=== PATIENT | female | born 1960 | race Caucasian/White ===

== ENCOUNTER 2017-12-11 18:26 | Emergency (ER) | payer OTHER ==
[2017-12-11] MEDS ORDERED: Ondansetron 4 MG/2 ML SDV IVPUSH ONE (19:17)
[2017-12-11] MEDS ORDERED: Sodium Chloride 0.9% 10 ML Syringe FLUSH PRN (19:17)
[2017-12-11] MEDS ORDERED: Sodium Chloride 0.9% 500 ML IV ONE (19:17)
--- NOTE | 2017-12-11 19:57 | EDM.PDOC ---
ED HPI GENERAL MEDICAL PROBLEM - General Chief Complaint: Gastrointestinal Problem Stated Complaint: nausea Time Seen by Provider: 12/11/17 18:56 Source of Information: Reports: RN Notes Reviewed - History of Present Illness INITIAL COMMENTS - FREE TEXT/NARRATIVE: 57 year old female with nausea, quite severe the past 4 days. No vomiting or diarrhea. Has had quite frequent cough worse a few days ago, mostly nonoprod. No abd pain at this time. Has been drinking and eating although appetite quite diminished. No chest pain or difficulty breathing. Worried about high potassium , states that made her ill once before in a similar way. 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 (see below) Other Treatments LOKIE DRIVER: none - Related Data Allergies Allergy/AdvReac Type Severity Reaction Status Date / Time amlodipine [From Norvasc] Allergy Rash Verified 01/05/17 08:20 amoxicillin Allergy Rash Verified 01/05/17 07:59 plant stanol salas Allergy Redness Verified 01/05/17 08:20 [From Benecol] Sulfa (Sulfonamide Allergy Rash Verified 01/05/17 07:59 Antibiotics) lisinopril AdvReac Cough Verified 02/15/17 11:31 Home Meds: Home Meds Aspirin [Halfprin] 81 mg PO DAILY 12/11/17 [History] L.acidoph,Paracasei, B.lactis [Probiotic] 1 cap PO DAILY 12/11/17 [History] Ondansetron [Zofran ODT] 4 mg PO Q8HR PRN #10 tab.dis 12/11/17 [Rx] Past Medical History Cardiovascular History: Reports: Other (See Below) Other Cardiovascular History: heart abblation for SVT and for atrail flutter - Past Surgical History GI Surgical History: Reports: Appendectomy, Cholecystectomy Musculoskeletal Surgical History: Reports: Other (See Below) Other Musculoskeletal Surgeries/Procedures:: low back surgery Social & Family History - Tobacco Use Smoking Status *Q: Never Smoker - Caffeine Use Caffeine Use: Reports: Tea - Recreational Drug Use Recreational Drug Use: No ED ROS GENERAL - Review of Systems Review Of Systems: See Below Constitutional: Denies: Fever, Chills, Diaphoresis HEENT: Denies: Sinus Problem, Throat Pain Respiratory: Reports: Cough. Denies: Shortness of Breath, Sputum Cardiovascular: Denies: Chest Pain GI/Abdominal: Reports: Decreased Appetite, Nausea. Denies: Abdominal Pain, Vomiting Musculoskeletal: Reports: No Symptoms Skin: Reports: No Symptoms Neurological: Reports: No Symptoms ED EXAM - Physical Exam Exam: See Below General Appearance: Alert, No Apparent Distress Eye Exam: Bilateral Eye: PERRL Throat/Mouth: Normal Inspection, Normal Oropharynx Head: Atraumatic Neck: Supple, Full Range of Motion Respiratory/Chest: No Respiratory Distress, Lungs Clear, Normal Breath Sounds Cardiovascular: Regular Rate, Rhythm GI/Abdominal Exam: Soft, Non-Tender. No: Guarding, Rebound Extremities: Normal Inspection, Normal Range of Motion Neurological: Alert, Oriented, No Motor/Sensory Deficits Skin Exam: Warm, Dry, Normal Color Course - Vital Signs Last Recorded V/S: Last Vital Signs Temp 98.7 F 12/11/17 18:34 Pulse 80 12/11/17 18:34 Resp 20 12/11/17 18:34 BP 162/97 H 12/11/17 18:41 Pulse Ox 100 12/11/17 18:34 - Orders/Labs/Meds Orders: Active Orders 24 hr Category Date Time Status Peripheral IV Care [RC] . DIRECTED Care 12/11/17 19:17 Active Sodium Chloride 0.9% [Saline Flush] Med 12/11/17 19:17 Active 10 ml FLUSH ASDIRECTED PRN Peripheral IV Insertion Adult [OM.PC] Stat Oth 12/11/17 19:17 Ordered Medication Orders Sodium Chloride (Saline Flush) 10 ml FLUSH ASDIRECTED PRN PRN Reason: Keep Vein Open Last Admin: 12/11/17 19:32 Dose: 10 ml Labs: Laboratory Tests 12/11/17 Range/Units 19:23 Sodium 139 (136-145) mEq/L Potassium 3.6 (3.5-5.1) mEq/L Chloride 104 (98-107) mEq/L Carbon Dioxide 25 (21-32) mEq/L Anion Gap 13.6 (5-15) BUN 16 (7-18) mg/dL Creatinine 0.8 (0.55-1.02) mg/dL Est Cr Clr Drug Dosing 62.63 mL/min Estimated GFR (MDRD) > 60 (>60) mL/min BUN/Creatinine Ratio 20.0 H (14-18) Glucose 103 (74-106) mg/dL Calcium 9.5 (8.5-10.1) mg/dL Total Bilirubin 0.3 (0.2-1.0) mg/dL AST 17 (15-37) U/L ALT 26 (14-59) U/L Alkaline Phosphatase 61 (46-116) U/L Total Protein 7.8 (6.4-8.2) g/dl Albumin 4.1 (3.4-5.0) g/dl Globulin 3.7 gm/dL Albumin/Globulin Ratio 1.1 (1-2) Meds: Medications Generic Name Dose Route Start Last Admin Trade Name Freq PRN Reason Stop Dose Admin Sodium Chloride 10 ml 12/11/17 19:17 12/11/17 19:32 Saline Flush FLUSH 10 ml ASDIRECTED PRN Administration Keep Vein Open Discontinued Medications Generic Name Dose Route Start Last Admin Trade Name Freq PRN Reason Stop Dose Admin Sodium Chloride 500 mls @ 999 mls/hr 12/11/17 19:17 12/11/17 19:31 Normal Saline IV 12/11/17 19:47 999 mls/hr .BOLUS ONE Administration Ondansetron HCl 4 mg 12/11/17 19:17 12/11/17 19:31 Zofran IVPUSH 12/11/17 19:18 4 mg ONETIME ONE Administration - Re-Assessments/Exams Free Text/Narrative Re-Assessment/Exam: 12/11/17 20:43 K+ 3.6, feeling better after IV fluid and zofran. Departure - Departure Time of Disposition: 20:29 Disposition: Home, Self-Care 01 Condition: Fair Clinical Impression: Nausea - Discharge Information Prescriptions: Ondansetron [Zofran ODT] 4 mg PO Q8HR PRN #10 tab.dis PRN Reason: Nausea/Vomiting Instructions: Nausea, Adult, [id number] Referrals: Clari Rae, [facility] SALESMAN [Primary Care Provider] - Forms: ED Department Discharge Additional Instructions: clear liquids and bland diet as tolerated, zofran q 8-12 hr if needed for severe nausea, pepcid or prilosec as needed, follow up clinic if not much better within 2-3 days as expected. - My Orders Last 24 Hours: My Active Orders 12/11/17 19:17 Peripheral IV Care [RC] . DIRECTED Sodium Chloride 0.9% [Saline Flush] 10 ml FLUSH ASDIRECTED PRN Peripheral IV Insertion Adult [OM.PC] Stat - Assessment/Plan Last 24 Hours: My Active Orders 12/11/17 19:17 Peripheral IV Care [RC] . DIRECTED Sodium Chloride 0.9% [Saline Flush] 10 ml FLUSH ASDIRECTED PRN Peripheral IV Insertion Adult [OM.PC] Stat
== END 2017-12-11 20:46 | disposition home or self-care (01) ==
LOC: JD.ED 18:26
DX: R11.0 Nausea (principal); Z88.2 Allergy status to sulfonamides; Z88.8 Allergy status to other drugs, medicaments and biological substances; Z79.82 Long term (current) use of aspirin; Z79.899 Other long term (current) drug therapy; Z90.49 Acquired absence of other specified parts of digestive tract
CPT/HCPCS: 36415; 80053; 96361; 96374; 99284; J2405; J7040; J7050

== ENCOUNTER 2018-04-15 10:47 | Emergency (ER) | payer OTHER ==
[2018-04-15] MEDS ORDERED: Sodium Chloride 0.9% 1,000 ML IV ONE (11:14)
[2018-04-15] MEDS ORDERED: Diltiazem 50 MG/10 ML SDV IVPUSH ONE (11:22)
[2018-04-15] MEDS ORDERED: Diltiazem 125 MG in Sodium Chloride 0.9% 100 ML IV SCH (11:30)
[2018-04-15] MEDS ORDERED: Sodium Chloride 0.9% 100 ML ONE (11:33)
--- NOTE | 2018-04-15 11:33 | EDM.PDOC ---
ED HPI GENERAL MEDICAL PROBLEM - General Chief Complaint: Cardiovascular Problem Stated Complaint: SYNCOPE/HIGH PULSE Time Seen by Provider: 04/15/18 10:50 Source of Information: Reports: Patient History Limitations: Reports: No Limitations - History of Present Illness INITIAL COMMENTS - FREE TEXT/NARRATIVE: 4-year-old female with a past medical history of atrial fibrillation presenting with a chief complaint of palpitations and nausea. In regards to the patient's atrial fibrillation she has a history of 2 prior ablations most recently in 2012 performed in [place]. In the interim 5 years the patient has had no palpitations and no other symptoms of her atrial fibrillation. The patient affirms that she is always aware when she is in atrial fibrillation. She's been on no rate or rhythm control medication during the interim. She is not currently anticoagulated. In regards to the patient's nausea this is a chronic problem the patient is dealing with over years. There is no clear etiology after a rather thorough workup. Incidentally the patient does report some right-sided flank pain she's had for the past few days. She seen a primary care doctor for it had a urinalysis as well as what she says were plain films only to look for kidney stone. No definitive diagnosis. Describes the pain is located on the right flank radiating down into the right lower quadrant of the abdomen patient has no gross hematuria. Denies any dysuria. No fevers chills or sweats home. Patient denies any chest pain. Associated with her palpitations. She is adamant that her palpitations started this morning. Unclear what the provoking factor was. Right Upper Abdomen Pain Score (Numeric/FACES): 6 - Related Data Allergies Allergy/AdvReac Type Severity Reaction Status Date / Time amlodipine [From Norvasc] Allergy Rash Verified 04/15/18 11:09 amoxicillin Allergy Rash Verified 04/15/18 11:09 plant stanol salas Allergy Redness Verified 04/15/18 11:09 [From Benecol] Sulfa (Sulfonamide Allergy Rash Verified 04/15/18 11:09 Antibiotics) lisinopril AdvReac Cough Verified 04/15/18 11:09 Home Meds: Home Meds Aspirin [Halfprin] 81 mg PO DAILY 12/11/17 [History] L.acidoph,Paracasei, B.lactis [Probiotic] 1 cap PO DAILY 12/11/17 [History] Ondansetron [Zofran ODT] 4 mg PO Q8HR PRN #10 tab.dis 12/11/17 [Rx] Metoprolol Succinate [Toprol XL] 25 mg PO DAILY #21 tab.er 04/15/18 [Rx] Past Medical History HEENT History: Reports: Impaired Vision Cardiovascular History: Reports: Other (See Below) Other Cardiovascular History: heart ablation for SVT 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 for 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: - Past Surgical History GI Surgical History: Reports: Appendectomy, Cholecystectomy Musculoskeletal Surgical History: Reports: Other (See Below) Other Musculoskeletal Surgeries/Procedures:: low back surgery Social & Family History - Tobacco Use Smoking Status *Q: Never Smoker - Caffeine Use Caffeine Use: Reports: None - Recreational Drug Use Recreational Drug Use: No ED ROS GENERAL - Review of Systems Review Of Systems: See Below Constitutional: Reports: No Symptoms ED EXAM, GENERAL - Physical Exam Exam: See Below Exam Limited By: No Limitations General Appearance: Alert, No Apparent Distress Throat/Mouth: Normal Inspection Head: Atraumatic Neck: Normal Inspection, Supple, Non-Tender Respiratory/Chest: No Respiratory Distress, Lungs Clear, Normal Breath Sounds Cardiovascular: Other (Irregular rhythm, tachycardic rate, no murmurs appreciated) Back Exam: Normal Inspection, Full Range of Motion, Other (No CVA tenderness bilaterally) Neurological: Alert, Oriented, CN II-XII Intact, No Motor/Sensory Deficits Psychiatric: Normal Affect, Normal Mood Skin Exam: Warm, Dry, Intact EKG INTERPRETATION EKG Date: 04/15/18 Time: 10:54 Rhythm: A-Fib Rate (Beats/Min): 135 [place]: Normal P-Wave: Absent QRS: Normal ST-T: Normal Comparison: NA - No Prior EKG Course - Vital Signs Last Recorded V/S: Last Vital Signs Temp 36.2 C 04/15/18 10:55 Pulse 137 H 04/15/18 11:29 Resp 14 04/15/18 10:55 BP 158/107 H 04/15/18 11:29 Pulse Ox 100 04/15/18 10:55 Orthostatic Blood Pressure [ 154/105 Standing] Orthostatic Blood Pressure [ 154/131 Sitting] Orthostatic Blood Pressure [ 137/90 Supine] - Orders/Labs/Meds Labs: Laboratory Tests 04/15/18 04/15/18 04/15/18 Range/Units 11:00 11:00 11:20 WBC 5.19 (3.98-10.04) K/mm3 RBC 5.38 H (3.98-5.22) M/mm3 Hgb 15.7 (11.2-15.7) gm/L Hct 47.6 H (34.1-44.9) % MCV 88.5 (79.4-94.8) fl MCH 29.2 (25.6-32.2) pg MCHC 33.0 (32.2-35.5) g/dl RDW Std Deviation 44.6 (36.4-46.3) fL Plt Count 249 (182-369) K/mm3 MPV 10.5 (9.4-12.3) fl Neut % (Auto) 57.0 (34.0-71.1) % Lymph % (Auto) 31.6 (19.3-51.7) % [place] % (Auto) 7.5 (4.7-12.5) % Eos % (Auto) 3.5 (0.7-5.8) Baso % (Auto) 0.4 (0.1-1.2) % Neut # (Auto) 2.96 (1.56-6.13) K/mm3 Lymph # (Auto) 1.64 (1.18-3.74) K/mm3 [place] # (Auto) 0.39 H (0.24-0.36) K/mm3 Eos # (Auto) 0.18 (0.04-0.36) K/mm3 Baso # (Auto) 0.02 (0.01-0.08) K/mm3 Sodium 143 (136-145) mEq/L Potassium 3.8 (3.5-5.1) mEq/L Chloride 107 (98-107) mEq/L Carbon Dioxide 26 (21-32) mEq/L Anion Gap 13.8 (5-15) BUN 14 (7-18) mg/dL Creatinine 0.9 (0.55-1.02) mg/dL Est Cr Clr Drug Dosing 54.99 mL/min Estimated GFR (MDRD) > 60 (>60) mL/min BUN/Creatinine Ratio 15.6 (14-18) Glucose 103 (74-106) mg/dL Calcium 9.5 (8.5-10.1) mg/dL Total Bilirubin 0.3 (0.2-1.0) mg/dL AST 22 (15-37) U/L ALT 27 (14-59) U/L Alkaline Phosphatase 75 (46-116) U/L Total Protein 8.4 H (6.4-8.2) g/dl Albumin 4.0 (3.4-5.0) g/dl Globulin 4.4 gm/dL Albumin/Globulin Ratio 0.9 L (1-2) Urine Color Light yellow (Yellow) Urine Appearance Clear (Clear) Urine pH 7.5 (5.0-8.0) Ur Specific [place] 1.020 (1.005-1.030) Urine Protein Negative (Negative) Urine Glucose (UA) Negative (Negative) Urine Ketones Negative (Negative) Urine Occult Blood Negative (Negative) Urine Nitrite Negative (Negative) Urine Bilirubin Negative (Negative) Urine Urobilinogen 0.2 (0.2-1.0) Ur Leukocyte Esterase Negative (Negative) Urine RBC 0-5 (0-5) /hpf Urine WBC 0-5 (0-5) /hpf Ur Epithelial Cells 0-5 (0-5) /hpf Urine Bacteria Occasional (FEW) /hpf Urine Mucus Not seen (FEW) /hpf Meds: Medications Discontinued Medications Generic Name Dose Route Start Last Admin Trade Name Roger PRN Reason Stop Dose Admin Diltiazem HCl 10 mg 04/15/18 11:22 04/15/18 11:29 Cardizem IVPUSH 04/15/18 11:23 10 mg ONETIME ONE Administration Sodium Chloride 1,000 mls @ 999 mls/hr 04/15/18 11:14 04/15/18 11:28 Normal Saline IV 04/15/18 12:14 999 mls/hr ONETIME ONE Administration Diltiazem HCl 125 mg/ Sodium 125 mls @ 5 mls/hr 04/15/18 11:30 04/15/18 11:53 Chloride IV 5 mg/hr TITRATE GURMEET 5 mls/hr Administration Protocol 5 MG/HR Sodium Chloride Confirm 04/15/18 11:33 04/15/18 11:53 Normal Saline Administered 04/15/18 11:34 Not Given Dose 100 mls @ as directed .ROUTE .STK-MED ONE Ibutilide Fumarate 1 mg/ 60 mls @ 300 mls/hr 04/15/18 12:06 04/15/18 12:24 Sodium Chloride IV 04/15/18 12:15 300 mls/hr ONETIME ONE Administration - Re-Assessments/Exams Free Text/Narrative Re-Assessment/Exam: 04/15/18 12:58 58-year-old female with a history of atrial fibrillation status post ablation in 2012 presenting with a chief complaint of palpitations. On initial exam the patient had an irregularly irregular rhythm and a tachycardic rate consistent with atrial fibrillation with rapid ventricular response. The patient however was hemodynamically stable with a normal blood pressure noted, no chest pain and no shortness of breath. I obtained labs which were normal CBC, CMP. Electrolytes were normal. And at this point we proceeded to rate control the patient with a Cardizem drip. Risks and benefits of cardioversion in the emergency department were discussed with the patient she'll elected to proceed with chemical cardioversion with ibutilide. This was performed and approximately 20-30 minutes after the end of the dose. Patient converted into a normal sinus rhythm after walking to the bathroom. On my reassessment of the patient she feels much improved clinically with no palpitations. In regards to the patient's incidental complaint right flank pain and urinalysis was obtained here today shows no RBCs. However approximately 10-20% of ANY stones will have no hematuria. I discussed this possibility with the patient. Plan to treat empirically. At this time the patient's normal kidney function is reassuring to me and I see no need to pursue further imaging to rule out an obstructing kidney stone. 04/18/18 23:11 Departure - Departure Time of Disposition: 13:30 Disposition: Home, Self-Care 01 Condition: Good Clinical Impression: Atrial fibrillation with rapid ventricular response, Flank pain Prescriptions: Metoprolol Succinate [Toprol XL] 25 mg PO DAILY #21 tab.er Instructions: Atrial Fibrillation, [id number] Referrals: Russel Cooper MD [Primary Care Provider] - Forms: ED Department Discharge Additional Instructions: You were seen in the ED today for palpitations. You were found to be in atrial fibrillation with rapid ventricular rate. We gave you a medication to make your heart rate and rhythm normal today. Please continue taking metoprolol to control your heart rate until you can see your primary care provider. If at any time you have new palpitations, chest pain, shortness of breath please return to the ED for re-evaluation.
== END 2018-04-15 13:40 | disposition home or self-care (01) ==
LOC: JD.ED 10:47
DX: I48.91 Unspecified atrial fibrillation (principal); R10.9 Unspecified abdominal pain; Z79.82 Long term (current) use of aspirin; Z79.899 Other long term (current) drug therapy; Z88.2 Allergy status to sulfonamides; Z88.8 Allergy status to other drugs, medicaments and biological substances; Z88.1 Allergy status to other antibiotic agents
CPT/HCPCS: 36415; 80053; 81001; 85025; 96365; 96375; 96376; 99285; J1742; J3490; J7030; J7040; J7050; 93010; 99284-25

== ENCOUNTER → 2021-05-26 | Day surgery (SDC) | payer BC ==
[~2021-05-26] MED LIST: Lactated Ringers 1,000 ML IV SCH; Lidocaine 1% 4 ML ONE; Lidocaine 1%/Sod Bicarbonate in NS 8.4% 1 ML Syringe IDERM PRN; Propofol 200 MG/20 ML SDV ONE; Sodium Chloride 0.9% 10 ML Syringe FLUSH PRN
--- NOTE | 2021-05-26 09:54 | PCM.PREANE ---
Preanesthetic Assessment - Anesthesia/Transfusion/Family Hx Anesthesia History: Prior Anesthesia Without Reaction Family History of Anesthesia Reaction: No Transfusion History: No Prior Transfusion(s) Intubation History: Unknown - Review of Systems General: No Symptoms Pulmonary: No Symptoms Cardiovascular: No Symptoms Gastrointestinal: No Symptoms Neurological: No Symptoms Other: Reports: None - Physical Assessment NPO Status Date: 05/26/21 NPO Status Time: 04:00 ASA Class: 2 Mental Status: Alert & Oriented x3 Airway Class: Mallampati = 1 Dentition: Reports: Normal Dentition Thyro-Mental Finger Breadths: 3 Mouth Opening Finger Breadths: 3 ROM/Head Extension: Full Lungs: Clear to Auscultation, Normal Respiratory Effort Cardiovascular: Regular Rate, Regular Rhythm - Allergies Allergies/Adverse Reactions: Allergies Allergy/AdvReac Type Severity Reaction Status Date / Time amlodipine [From Norvasc] Allergy Rash Verified 04/15/18 11:09 amoxicillin Allergy Rash Verified 04/15/18 11:09 plant stanol salas Allergy Redness Verified 04/15/18 11:09 [From Benecol] Sulfa (Sulfonamide Allergy Rash Verified 04/15/18 11:09 Antibiotics) lisinopril AdvReac Cough Verified 04/15/18 11:09 - Acknowledgements Anesthesia Type Planned: MAC Pt an Appropriate Candidate for the Planned Anesthesia: Yes Alternatives and Risks of Anesthesia Discussed w Pt/Guardian: Yes Pt/Guardian Understands and Agrees with Anesthesia Plan: Yes PreAnesthesia Questionnaire HEENT History: Reports: Impaired Vision Cardiovascular History: Reports: High Cholesterol, Hypertension, Other (See Below) Other Cardiovascular History: heart ablation for SVT and for atrial flutter Respiratory History: Reports: None Gastrointestinal History: Reports: None Genitourinary History: Reports: None 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: Musculoskeletal History: Reports: Arthritis Psychiatric History: Reports: Anxiety Endocrine/Metabolic History: Reports: None - Past Surgical History Cardiovascular Surgical History: Reports: Other (See Below) (ablation x2 2011, 2012 or a-flutter) GI Surgical History: Reports: Appendectomy, Cholecystectomy Musculoskeletal Surgical History: Reports: Other (See Below) Other Musculoskeletal Surgeries/Procedures:: low back surgery - SUBSTANCE USE Tobacco Use Status *Q: Never Tobacco User - HOME MEDS Home Medications: Home Meds Aspirin [Halfprin] 81 mg PO DAILY 12/11/17 [History] L.acidoph,Paracasei, B.lactis [Probiotic] 1 cap PO DAILY 12/11/17 [History] Ondansetron [Zofran ODT] 4 mg PO Q8HR PRN #10 tab.dis 12/11/17 [Rx] Metoprolol Succinate [Toprol XL] 25 mg PO DAILY #21 tab.er 04/15/18 [Rx] - CURRENT (IN HOUSE) MEDS Current Meds: Current Medications Lactated Ringer's (Ringers, Lactated) 1,000 mls @ 125 mls/hr IV ASDIRECTED GURMEET Stop: 05/26/21 23:00 Lidocaine/Sodium Bicarbonate (Lidocaine 1%/Sod Bicarbonate In Ns 8.4% 1 Ml Syringe) 0.25 ml IDERM ONETIME PRN PRN Reason: Prior to IV Start Stop: 05/26/21 18:00 Sodium Chloride (Sodium Chloride 0.9% 10 Ml Syringe) 10 ml FLUSH ASDIRECTED PRN PRN Reason: Keep Vein Open Stop: 05/26/21 18:00
--- NOTE | 2021-05-26 11:33 | PCM48HPAN ---
Post Anesthesia Note - EVALUATION WITHIN 48HRS OF ANESTHETIC Vital Signs in Normal Range: Yes Patient Participated in Evaluation: Yes Respiratory Function Stable: Yes Airway Patent: Yes Cardiovascular Function Stable: Yes Hydration Status Stable: Yes Pain Control Satisfactory: Yes Nausea and Vomiting Control Satisfactory: Yes Mental Status Recovered: Yes Vital Signs: Last Vital Signs Temp 36.1 C 05/26/21 09:30 Pulse 68 05/26/21 09:30 Resp 16 05/26/21 09:30 BP 131/90 05/26/21 09:30 Pulse Ox 96 05/26/21 09:30
--- NOTE | 2021-05-26 12:45 | PCM.PRNOTE ---
- Free Text/Narrative Note: Date: 05/26/2021 Procedure: diagnostic colonoscopy History: right upper quadrant pain, bowel wall thickening at hepatic flexure on CT, positive FRANCO screening Endoscopist: Johnathan Santos MD Findings: Excellent prep. 2 small polyps identified and removed. No evidence of gross colitis. Several mucosal biopsies were taken, including terminal ileal mucosa, hepatic flexure, cecum, and rectum. Detailed Report: The patient was taken to the endoscopy suite and placed in left lateral decubitus position. Timeout was performed and monitored anesthesia care was initiated. The anus appeared normal and digital rectal exam was unremarkable. The colonoscope was inserted and advanced all the way to the cecum with ease. The appendiceal orifice was visualized. Prep was excellent. The ileocecal valve was visualized and the terminal ileum was intubated. Ileal mucosa appeared normal, and a sample biopsy was obtained with cold forceps. The cecum appeared to have gross evidence of lymphoid aggregate, a sample biopsy was obtained with cold forceps. The scope was slowly withdrawn and mucosal surfaces carefully inspected. A small polyp was identified in the midportion of the colon and was removed using cold forceps. The tissue base was fulgurated afterwards. There was no evidence of gross colitis at the hepatic flexure. Sample biopsies of this area were obtained nonetheless given the patient's symptoms and prior imaging findings. A few scattered diverticula were noted in the distal colon. On retroflexion, the rectum appeared grossly normal, and a sample biopsy of distal rectal mucosa was obtained with cold forceps. Air was suctioned from the distal colon and rectum prior to withdrawal of the scope. The patient tolerated the procedure well.
== END | disposition home or self-care (01) ==
LOC: JD.SDS 08:56
PROVIDERS: ATTEND Surgery
DX: D12.2 Benign neoplasm of ascending colon (principal); K63.89 Other specified diseases of intestine; K57.30 Diverticulosis of large intestine without perforation or abscess without bleeding; E78.00 Pure hypercholesterolemia, unspecified; I10 Essential (primary) hypertension; Z88.1 Allergy status to other antibiotic agents; Z88.2 Allergy status to sulfonamides; Z88.8 Allergy status to other drugs, medicaments and biological substances; Z90.49 Acquired absence of other specified parts of digestive tract; Z98.890 Other specified postprocedural states
CPT/HCPCS: 45380; J2704; J7120; 00811